=== PATIENT | female | born 1995 | race Caucasian/White ===

== ENCOUNTER 2016-12-07 13:46 | Emergency (ER) | payer OTHER ==
[2016-12-07 14:01] LABS: Bilirubin Negative (Negative); Blood, Urine Large (Negative); Glucose, Urine (Dipstick) Negative (Negative); Ketone, Urine Negative (Negative); Nitrite Negative (Negative); Protein, Urine (Dipstick) 100 mg/dL (Neg-Trace); Urobilinogen 0.2 mg/dL (0.2-1.0)
[2016-12-07 14:06] LABS: RBC/HPF 21-50 HPF (0-3)
[2016-12-07 14:07] LABS: Bacteria/HPF 2+ HPF (None Seen)
== END 2016-12-07 14:14 | disposition home or self-care (01) ==
LOC: SCSER 13:46
DX: N39.0 Urinary tract infection, site not specified (principal)
CPT/HCPCS: 81003; 81015; 81025; 87077; 87086; 87186; 99283

== ENCOUNTER 2018-02-10 12:28 | Outpatient (CLI) | payer OTHER ==
--- NOTE | 2018-02-11 15:49 | MRI ---
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 COMPARISON: Spine screening outside exam 05/10/14 which does not include a diagnostic report for comparison. FINDINGS: Lumbar spine vertebral bodies are unremarkable with preserved height and alignment of the spine. Dis k space height is preserved. Conus medullaris has a normal morphology terminating at L1 level. No pathologic mass producing enhan cement of the vertebral canal. 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 IMPRESSION: 1. No acute abnormality of the lumbar spine. 2. 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 3. Normal-appearing conus medullaris. POS: [facility]
--- NOTE | 2018-02-11 15:54 | MRI ---
MRI CERVICAL SPINE WITH AND WITHOUT CONTRAST: 02/11/18 COMPARISON: Spine screening outside exam 05/10/14 which does not include a diagnostic report for comparison. 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 FINDINGS: Evidence of suboccipital craniotomy with posterior cervical spine fusion producing prominent suscepti bility artifact from metallic hardware which does limit evaluation of the cervical spine. There is di ffuse abnormal increased T2 signal within the central aspect of the cervical spinal cord consistent w ith hydrosyringomyelia. Comparing to prior exam, this is grossly stable, with a diameter of approxima tely 3.3 mm. Postcontrast imaging does not reveal pathologic intramedullary enhancement. 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 There is no pathologic intramed ullary enhancement associated. POS: [facility]
--- NOTE | 2018-02-11 15:57 | MRI ---
THORACIC SPINE MRI WITH AND IWTHOUT CONTRAST: COMPARISON: Reference is made to an outside scan without an interpretation labeled MRI screening 05/10/2014. CLINICAL HISTORY: Arnold-Chiari syndrome, syringohydromyelia (syrinx). FINDINGS: Thee is diffuse abnormal increased T2 signal throughout the majority of the craniocaudal extent of th e thoracic spinal cord which results in mild expansion of the thoracic spinal cord diameter. The lar gest diameter of the dilated central spinal canal measured approximately 3 mm. Postcontrast imaging reveals no evidence of pathologic intramedullary enhancement. Within the thoracic spine, there is no significant degenerative disk disease or high-grade central canal stenosis. There is a low T1 and T 2 focus involving the vertebral body of the T6 vertebral segment which may relate to a bone island or other sclerotic focus. IMPRESSION: 1. 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 No pathologic intramedullary enhanc ement. 2. Stable sclerotic focus of T6 vertebral body, which may relate to a stable bone island. 3. Degree of hydrosyringomyelia is grossly stable in caliber to 05/10/2014 exam. POS: [facility]
--- NOTE | 2018-02-11 16:03 | MRI ---
BRAIN MRI WITH AND WITHOUT CONTRAST: 02/11/18 CLINICAL HISTORY: Arnold Chiari syndrome, hydrosyringomyelia (syrinx). No prior imaging comparison available. FINDINGS: There is evidence of suboccipital craniotomy with associated susceptibility artifact. Ventricular sys tem is of normal size. There is no midline shift. There is a slight residual peg shape of the cerebel lar tonsils. No evidence of restricted diffusion. No intra-axial hemorrhagic susceptibility. There is prominent susceptibility of the posterior fossa limiting assessment due to adjacent spinal hardware. Imaged skull base flow voids are unremarkable. There is no pathologic intra-axial enhancement. Small rounded density of the left occipital subcutaneous tissues is likely a scalp lymph node. There is incidental note of mild mucosal thickening within the paranasal sinuses. IMPRESSION: Evidence of prior suboccipital craniectomy. There is no significant inferior herniation of the cerebe llar tonsils, status post posterior decompression. POS: [facility]
== END 2018-02-10 12:29 | disposition home or self-care (01) ==
LOC: SCSMRI 12:28
PROVIDERS: ATTEND Neurological Surgery
DX: G95.0 Syringomyelia and syringobulbia (principal); G93.5 Compression of brain
CPT/HCPCS: 70553; 72156; 72157; 72158

== ENCOUNTER 2018-03-29 07:55 | Outpatient (CLI) | payer OTHER ==
--- NOTE | 2018-03-29 08:48 | ULT ---
GALLBLADDER ULTRASOUND: INDICATIONS: Right upper quadrant pain. FINDINGS: The gallbladder has a normal sonographic appearance. No evidence of gallstones. The common bile tadeo t is of normal caliber, at 1 to 2 mm. The visualized pancreas is unremarkable. The liver appears un remarkable. The right kidney is imaged and appears unremarkable. IMPRESSION: Unremarkable gallbladder ultrasound. POS: [facility]
== END 2018-03-29 07:56 | disposition home or self-care (01) ==
LOC: BICULT 07:55
PROVIDERS: ATTEND Internal Medicine Gastroenterology
DX: K52.9 Noninfective gastroenteritis and colitis, unspecified (principal); R10.11 Right upper quadrant pain; R11.0 Nausea
CPT/HCPCS: 76705

== ENCOUNTER 2018-05-12 15:27 | Outpatient (CLI) | payer OTHER ==
--- NOTE | 2018-05-12 18:52 | CT ---
CT ABDOMEN AND PELVIS WITH IV AND ORAL CONTRAST 05/12/18 HISTORY: Abdominal pain. FINDINGS: Lung bases are clear. The liver, spleen, kidneys, adrenal glands, and pancreas have a normal CT appea kevin. No enlarged lymph nodes or free fluid. Physiologic amount of fluid within the cul-de-sac. Urin fadi bladder is unremarkable. Appendix is not inflamed. IMPRESSION: No significant abnormalities are demonstrated. POS: [facility]
== END 2018-05-12 15:28 | disposition home or self-care (01) ==
LOC: SCSCT 15:27
PROVIDERS: ATTEND Internal Medicine Gastroenterology
DX: R10.13 Epigastric pain (principal); R11.0 Nausea
CPT/HCPCS: 74176

== ENCOUNTER 2018-06-29 07:33 | Outpatient (CLI) | payer OTHER ==
--- NOTE | 2018-06-29 13:16 | NM ---
RADIONUCLIDE GASTRIC EMPTYING SCAN: HISTORY: Epigastric pain. RADIOPHARMACEUTICAL: 2.1 mCi Technetium 99m sulfur colloid administered orally in scrambled eggs. FINDINGS: There is 75% emptying of the ingested gastric contents at an hour, 94% emptying at 1 hour, and 10 0% emptying at 2 hours. The calculated gastric emptying half-time measures 22 minutes. IMPRESSION: Rapid gastric emptying. POS: [facility]
== END 2018-06-29 07:34 | disposition home or self-care (01) ==
LOC: NM 07:33
PROVIDERS: ATTEND Internal Medicine Gastroenterology
DX: R10.13 Epigastric pain (principal)
CPT/HCPCS: 78264; A9541

== ENCOUNTER 2019-12-03 19:21 | Emergency (ER) | payer OTHER, SELFPAY | END 2019-12-03 19:40 | disposition home or self-care (01) | LOC: ERS 19:21 | DX: S51.851A Open bite of right forearm, initial encounter (principal); Z79.899 Other long term (current) drug therapy; W50.3XXA Accidental bite by another person, initial encounter | CPT/HCPCS: 99283 ==